=== PATIENT | female | born 1970 | race Caucasian/White ===

== ENCOUNTER 2017-10-30 19:13 | Emergency (ER) | payer BC ==
[2017-10-30 19:33] VITALS: BP 130/63; BMI 26.5
[2017-10-30] MEDS ORDERED: BACTROBAN OINT TOP ONE (19:42)
[2017-10-30] MEDS ORDERED: ADACEL TDaP IM ONE ×2 (19:42→19:43)
[2017-10-30] MEDS ORDERED: BACITRACIN ZINC ONE (19:43)
--- NOTE | 2017-10-30 20:01 | DR.GENAD ---
HPI - PCP Primary Care Physician: nfd - HPI Comment HPI Comment: DOG IMMUNIZE PER PATIENT. DOG BELONG TO NEIGHBOR. ABRSION ON RT ELBOW ALSO FROM HER DOG. SHE WAS HOLDING HER DOG IN HER ARM WHEN THE NEIGHBORS DOG BITE HER. HER DOG SCRATCH HER ELBOW. - Complaint/Symptoms Chief Complaint Doctors Comments: DOG BITE ON THE BACK ON THE RIGHT SIDE. ABRASION AND PUNTURE WOUND NOTED. Chief Complaint:: pt has dog bite on rt mid back abrasions noted no puncture wound seen the dog had rabies shot 4 months ago - Nurses notes reviewed Nurses Notes Review: Yes - Source History Provided: Patient - Mode of Arrival Mode of Arrival: Ambulatory - Timing Onset of Chief Complaint: 10/30/17 PMH - PMH Past Medical History: Yes Past Medical History: GERD Past Medical History Comment: celiac diease Past Surgical History: Yes Surgical History: Hysterectomy Past Surgical History Comment: foot - Family History History of Family Medical Conditions: No - Social History Does patient currently use any type of tobacco product: No Have you used tobacco products in the last 12 months: No Type of Tobacco Use: None Alcohol Use: None Do you use any recreational Drugs:: No Lives With: Family Lives Where: Home - infectious screening In the last 2 months have you had wt loss of >10#?: NO Have you had fever, night sweats or hemotysis?: No Have you traveled outside the country in the last 6 months?: No Isolation: Standard ROS - Review of Systems Constitutional: No Symptoms Reported Eyes: No Symptoms Reported ENTM: No Symptoms Reported Respiratoy: No Symptoms Reported Cardiovascular: No Symptoms Reported Gastrointestinal/Abdominal: No Symptoms Reported Genitourinary: No Symptoms Reported Neurological: No Symptoms Reported Musculoskeletal: Right, Elbow Integumentary: Bruises Hematologic/Lymphatic: No Symptoms Reported Endocrine: No Symptoms Reported All Other Systems: Reviewed and Negative PE - Vital Signs Vitals: Temperature 97.1 F Pulse Rate 61 Respiratory Rate 18 Blood Pressure 130/63 O2 Sat by Pulse Oximetry 98 - General Limitations: No Limitations General Appearance: Alert - Head Head Exam: Normal Inspection - Eyes Eye exam: Normal Appearance - ENT ENT Exam: Normal External Ear Exam External Ear Exam: Normal External Inspection Nose Exam: Normal Nose Exam - Neck Neck Exam: Trachea Midline - Chest Chest Inspection: Symmetric Chest Wall Rise - Respiratory Respiratory Exam: Normal Lung Sounds Bilat Respiratory Exam: Bilateral Clear to Auscultation - Cardiovascular Cardiovascular Exam: Regular Rate, Normal Rhythm, Normal Heart Sounds - Abdominal Exam Abdominal Exam: Normal Inspection - Extremities Extremities Exam: Normal Inspection - Back Back Exam: Normal Inspection - Psychiatric Psychiatric Exam: Normal Affect, Normal Mood - Skin Skin Exam: Erythema, Other (ABRASION RT ELBOW AND RT SIDE WITH PUNCTURE WOUND ON RT SIDE.) MDM - Additional Information Additional Information Obtained From: Family - Differential Diagnosis Differential Diagnosis: DOG BITE, ABRASION, PUNCTURE WOUND. Course - Treatment Treatment: SEE ORDERS. - Education/Counseling Education/Counseling: Patient, Family, Education Educated On: Diagnosis, Needs for Follow Up - Diagnosis Discharge Problem: Puncture wound Dog bite Qualifiers: Encounter type: initial encounter Qualified Code(s): W54.0XXA - Bitten by dog, initial encounter - Discharge Plan Disposition: 01 HOME, SELF-CARE Condition: Stable Prescriptions: Amoxicillin & Pot Clavulanate [AUGMENTIN TAB 875 mg/125 mg *] 1 tab PO BID #14 tab - Follow ups/Referrals Follow ups/Referrals: N[facility],None [Primary Care Provider] - 3 days - Instructions Instructions: Animal Bite, [id number], Puncture Wound, [id number] Additional Instructions: RETURN TO ED IF WORSE.
[2017-10-30] MEDS ORDERED: HYDROGEN PEROXIDE 3% ONE (20:03)
== END 2017-10-30 20:12 | disposition home or self-care (01) ==
LOC: ER 19:13
DX: S21.231A Puncture wound without foreign body of right back wall of thorax without penetration into thoracic cavity, initial encounter (principal); W54.0XXA Bitten by dog, initial encounter
CPT/HCPCS: 90471; 99282